=== PATIENT | female | born 1980 | race Caucasian/White ===

== ENCOUNTER 2020-09-14 14:19 | Emergency (ER) | payer OTHER ==
[~2020-09-14] VITALS: Ht 160 cm; Wt 86.2 kg
[~2020-09-14 14:19] MED LIST: ADVAIR 100-501 EACH IH; ADVAIR 100-501 EACH INH; AMOXICILLIN/POTASSIU; CALCIUM 500 +1 EAC6 PO; CLARITIN10 MG PO; IRON325 PO; LORTABELXR PO; PERCOCET 5-3251 EACH; PREDNISONE 10 M10 M1; PRENATAL PO; PROAIR HFA8.5 GM IH; ZPAK
[2020-09-14] MEDS ORDERED: PROMETH-CODEIN 65 ML PO (15:53)
[2020-09-14] MEDS ORDERED: PREDNISONE 20 M20 M1 PO (15:53)
[2020-09-14 15:55] VITALS: BP 123/83
== END 2020-09-14 15:55 | disposition home or self-care (01) ==
LOC: M.ERS 14:19
DX: R05 Cough (principal); R09.89 Other specified symptoms and signs involving the circulatory and respiratory systems; J45.909 Unspecified asthma, uncomplicated; Z88.6 Allergy status to analgesic agent; Z88.5 Allergy status to narcotic agent

== ENCOUNTER 2021-02-01 13:59 | Emergency (ER) | payer OTHER ==
[~2021-02-01] VITALS: Ht 160 cm; Wt 85.3 kg
[~2021-02-01 13:59] MED LIST changes: +PREDNISONE 20 M20 M1 PO; +PROMETH-CODEIN 65 ML PO
[2021-02-01] MEDS ORDERED: NAPROSYN500 M1 PO (15:45)
[2021-02-01 16:00] VITALS: BP 124/79
== END 2021-02-01 16:01 | disposition home or self-care (01) ==
LOC: M.ERS 13:59
DX: S93.501A Unspecified sprain of right great toe, initial encounter (principal); J45.909 Unspecified asthma, uncomplicated; Z88.6 Allergy status to analgesic agent; Z88.5 Allergy status to narcotic agent; Z79.899 Other long term (current) drug therapy; Z90.49 Acquired absence of other specified parts of digestive tract; X50.1XXA Overexertion from prolonged static or awkward postures, initial encounter; Y93.89 Activity, other specified; Y92.89 Other specified places as the place of occurrence of the external cause; Y99.9 Unspecified external cause status

== ENCOUNTER 2021-07-07 11:59 | Emergency (ER) | payer OTHER ==
[~2021-07-07] VITALS: Ht 160 cm; Wt 82.6 kg
[~2021-07-07 11:59] MED LIST changes: +NAPROSYN500 M1 PO
[2021-07-07 12:45] LABS: INFLUENZA A ANTIGEN Negative (Negative); INFLUENZA B ANTIGEN Negative (Negative)
[2021-07-07] MEDS ORDERED: DEXAMETHASONE 44 M1 PO (13:04)
[2021-07-07] MEDS ORDERED: ZPAK PO (13:04)
[2021-07-07 13:15] VITALS: BP 117/84
== END 2021-07-07 13:15 | disposition home or self-care (01) ==
LOC: M.ERS 11:59
PROVIDERS: Nurse Practitioner Family
DX: U07.1 COVID-19 (principal); J45.909 Unspecified asthma, uncomplicated; Z98.890 Other specified postprocedural states; Z88.8 Allergy status to other drugs, medicaments and biological substances